=== PATIENT | male | born 1955 | race Caucasian/White ===

== ENCOUNTER 2017-12-14 17:07 | Observation (INO) | payer SELFPAY ==
[2017-12-14] MEDS ORDERED: NS 1,000 ML IV ONE (17:32)
--- NOTE | 2017-12-14 17:32 | EDPHY ---
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 HISTORY OF PRESENT ILLNESS: This is a 62-year-old male, presents emergency room with chest tightness. Patient states that he went for eye today, on a up pill inclined he got lightheaded and developed some chest tightness. States last an hour to 2 hr. It is sit down and rest. He thinks he may have also had a syncopal episode. No pleuritic pain. Patient denies any history of cardiovascular disease. Past Medical History: Denies significant medical history Past Surgical History: Denies significant surgical history Social History: Denies daily use drugs alcohol tobacco. Family History: Noncontributory ROS REVIEW OF SYSTEMS: 10 Systems were reviewed and negative with the exception of the elements mentioned in the history of present illness. Exam Constitutional triage nursing summary reviewed, vital signs reviewed, awake/ alert. Eyes normal conjunctivae and sclera, EOMI, PERRLA. HENT normal inspection, atraumatic, moist mucus membranes, no epistaxis, neck supple/ no meningismus, no raccoon eyes. Respiratory clear to auscultation bilaterally, normal breath sounds, no respiratory distress, no wheezing. Cardiovascular rate normal, regular rhythm, no murmur, no edema, distal pulses normal. Gastrointestinal soft, non-tender, no rebound, no guarding, normal bowel sounds, no distension, no pulsatile mass. Genitourinary no CVA tenderness. Musculoskeletal no midline vertebral tenderness, full range of motion, no calf swelling, no tenderness of extremities, no meningismus, good pulses, neurovascularly intact. Skin pink, warm, & dry, no rash, skin atraumatic. Neurologic awake, alert and oriented x 3, AAOx3, moves all 4 extremities equally, motor intact, sensory intact, CN II-XII intact, normal cerebellar, normal vision, normal speech. Psychiatric normal mood/affect. Heme/Lymph/Immune no lymphadenopathy. Differential diagnosis includes but is not limited to: ACS, atypical chest pain , pneumothorax, pneumonia, pulmonary embolism, aortic dissection, congestive heart failure, tumor, musculoskeletal pain, esophageal pain, GERD, peptic ulcer disease, pancreatitis Medical Decision Making: Plan for this patient IV establishment EKG, troponin, chest x-ray, blood work, rule out acute coronary syndrome. Full-dose aspirin. Upon arrival to the emergency room at 1800 the patient has no chest pain. Re-evaluation: EKG interpretation by me on record in [employer] system. Impression time of EKG 1723, sinus rhythm rate of 67, T-wave abnormality seen lead to [address] elevation. ED x-ray chest negative for acute cardiopulmonary disease. Troponin noted be negative. Plan for this patient will be admitted to the hospitalist service for chest pressure exertional. Further cardiac evaluation and rule out. I spoke with the hospitalist service Dr. Betancourt who agrees to admit. Source: Patient - Personal History Current Tetanus/Diphtheria Vaccine: No Current Tetanus Diphtheria and Acellular Pertussis (TDAP): No - Medical/Surgical History Hx Asthma: No Hx Chronic Respiratory Disease: No Hx Diabetes: No Hx Cardiac Disease: No Hx Renal Disease: No Hx Cirrhosis: No Hx Alcoholism: No Hx HIV/AIDS: No Hx Splenectomy or Spleen Trauma: No Other PMH: hepatitis, pna. depression. seeing neurologist - Social History Smoking Status: Never smoked Constitutional: Initial Vital Signs Temperature (C) 37.0 C 12/14/17 17:11 Heart Rate 78 12/14/17 17:11 Respiratory Rate 18 12/14/17 17:11 Blood Pressure 134/101 H 12/14/17 17:11 O2 Sat (%) 97 12/14/17 17:11 O2 Delivery Mode Room Air Allergies/Adverse Reactions: No Known Allergies Allergy (Verified 12/14/17 19:01) Home Medications: Medication Instructions Recorded Aspirin EC [Aspirin EC 81 mg (*)] 162 mg PO Q2D 12/14/17 Cyanocobalamin [Vitamin B12 (*)] 1,000 mcg PO Q2D 12/14/17 Herbals/Supplements -Info Only 1 ea PO DAILY 12/14/17 Melatonin [Melatonin 3 MG (*)] 3 mg PO HS PRN 12/14/17 Multivitamins [Multivitamin (*)] 1 each PO DAILY 12/14/17 Naproxen 375 mg PO Q6H 12/14/17 buPROPion XL [Wellbutrin 150mg XL] 300 mg PO DAILY 12/14/17 Medical Decision Making - Data Points Laboratory Results: Laboratory Results 12/14/17 17:25 12/14/17 17:25 Medications Given: Discontinued Medications Aspirin (Aspirin) 325 mg PO DAILY [facility] Stop: 06/13/18 08:59 Last Admin: 12/15/17 11:32 Dose: 325 mg Bupropion HCl (Wellbutrin Xl) 300 mg PO DAILY [facility] Stop: 06/13/18 08:59 Last Admin: 12/15/17 11:32 Dose: 300 mg Sodium Chloride (Ns) 1,000 mls @ 0 mls/hr IV EDNOW ONE; Wide Open PRN Reason: Protocol Stop: 12/14/17 17:33 Last Admin: 12/14/17 17:46 Dose: 1,000 mls Melatonin (Melatonin) 3 mg PO HS PRN PRN Reason: Sleep/Insomnia Stop: 06/12/18 19:41 Last Admin: 12/14/17 21:54 Dose: 3 mg Multivitamins (Tab-A-Josias) 1 each PO DAILY [facility] Stop: 06/13/18 08:59 Last Admin: 12/15/17 11:32 Dose: 1 each Temazepam (Restoril) 15 mg PO HS PRN PRN Reason: Sleep/Insomnia Stop: 06/12/18 19:38 Last Admin: 12/15/17 00:39 Dose: 15 mg Point of Care Test Results: Chemistry 12/14/17 17:30 POC Troponin I 0.00 ng/mL ng/mL (0.00-0.08) Departure - Departure Disposition: [facility] Acute Clinical Impression: Chest pain Qualifiers: Chest pain type: unspecified Qualified Code(s): R07.9 - Chest pain, unspecified Condition: Good
[2017-12-14 17:40] LABS: PLATELET COUNT 309 10^3/uL (150-400)
[2017-12-14 19:01] LABS: INR 0.95 (0.83-1.16); PROTIME(PATIENT) 12.9 SEC (12.0-15.0)
[2017-12-14] MEDS ORDERED: ONDANSETRON DISINTEGRATING 4 MG TAB PO PRN (19:39)
[2017-12-14] MEDS ORDERED: ACETAMINOPHEN 325 MG TAB PO PRN (19:39)
[2017-12-14] MEDS ORDERED: ONDANSETRON 4 MG/2 ML VIAL IVP PRN (19:39)
[2017-12-14] MEDS ORDERED: TEMAZEPAM 15 MG CAP PO PRN (19:39)
[2017-12-14] MEDS ORDERED: MELATONIN 3 MG TAB PO PRN (19:42)
--- NOTE | 2017-12-14 22:01 | PDGENHP ---
History and Physical - Chief Complaint syncope versus near syncope/chest pain - History of Present Illness 62 yo M with no significant PMH presenting with complaints of near syncope and chest pain today while hiking. Patient notes that in general he has been having difficulty with increased fatigue for around 20 years, but significantly worse recently. He also notes issues with chronic temporal headache for the past 10 months or so for which he has been seen by various dentists and orthodontists as well as his primary care doctor and which was thought to be either related to his teeth initially (ruled out more recently by an clinical services assistant) or to sinus issues--he has been on several courses of abx without help for this. 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 This happens most frequently at night and will last seconds to minutes and generally go away on its own. Today he was doing a light hike when he developed lightheadedness and some chest tightness, the symptoms became so severe he had to sit down, but when he tried to sit down he could not even do that and had to lie down. He was able to get up to a car with friends help and his GF notes that when he was in the car he did appear to lose consciousness completely for several seconds--he does not recall this episode and is unsure if he had a syncopal event or not. Ultimately they decided to [place] from [place] where he resides and had an ambulance [place]. Since arriving to the ER he has felt much better, currently he denies any chest pain or pressure, denies palpitations or skipped beats. He does continue to have headache across his temporal region and notes that he also has tinnitus which has been present months as well. History Information - Allergies/Home Medication List Allergies/Adverse Reactions: No Known Allergies Allergy (Verified 12/14/17 19:01) Home Medications: Aspirin EC [Aspirin EC 81 mg (*)] 162 mg PO Q2D 12/14/17 [Last Taken 12/13/17] Cyanocobalamin [Vitamin B12 (*)] 1,000 mcg PO Q2D 12/14/17 [Last Taken 12/13/17] Herbals/Supplements -Info Only 1 ea PO DAILY 12/14/17 [Last Taken Unknown] Melatonin [Melatonin 3 MG (*)] 3 mg PO HS PRN 12/14/17 [Last Taken 12/13/17] Multivitamins [Multivitamin (*)] 1 each PO DAILY 12/14/17 [Last Taken Unknown] Naproxen 375 mg PO Q6H 12/14/17 [Last Taken 12/14/17] buPROPion XL [Wellbutrin Xl] 300 mg PO DAILY 12/14/17 [Last Taken 12/14/17] I have personally reviewed and updated: family history, medical history, social history, surgical history - Past Medical History Additional medical history: chronic headache. tinnitus. 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 father diagnosed with "rosa 's syndrome" a blood disorder that is terminal. 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, has a father out of state who has been diagnosed with a terminal illness Review of Systems Review of Systems: ROS: 10pt was reviewed & negative except for what was stated in HPI & below Physical Exam Physical Exam: Temp Pulse Resp BP Pulse Ox 36.5 C 76 16 149/95 H 97 12/14/17 19:38 12/14/17 19:38 12/14/17 19:38 12/14/17 19:38 12/14/17 19:38 Constitutional: no apparent distress, appears nourished Eyes: PERRL, anicteric sclera Ears, Nose, Mouth, Throat: moist mucous membranes, hearing normal Cardiovascular: regular rate and rhythym, no murmur, rub, or gallop, No edema Respiratory: no respiratory distress, no rales or rhonchi, clear to auscultation Gastrointestinal: normoactive bowel sounds, soft, non-tender abdomen, no palpable masses Genitourinary: no bladder tenderness Skin: warm, normal color Musculoskeletal: full muscle strength, no muscle tenderness Neurologic: AAOx3, sensation intact bilaterally, CN II-XII Intact, No weakness, No numbness Psychiatric: interacting appropriately, not anxious, not encephalopathic Lab Data & Imaging Review 12/14/17 17:25 12/14/17 17:25 WBC 7.97 10^3/uL (3.80-9.50) 12/14/17 17:25 RBC 5.03 10^6/uL (4.40-6.38) 12/14/17 17:25 Hgb 16.4 g/dL (13.7-17.5) 12/14/17 17:25 Hct 45.2 % (40.0-51.0) 12/14/17 17:25 MCV 89.9 fL (81.5-99.8) 12/14/17 17:25 MCH 32.6 pg (27.9-34.1) 12/14/17 17:25 MCHC 36.3 g/dL (32.4-36.7) 12/14/17 17:25 RDW 11.9 % (11.5-15.2) 12/14/17 17:25 Plt Count 309 10^3/uL (150-400) 12/14/17 17:25 MPV 8.5 fL (8.7-11.7) L 12/14/17 17:25 Neut % (Auto) 65.0 % (39.3-74.2) 12/14/17 17:25 Lymph % (Auto) 21.7 % (15.0-45.0) 12/14/17 17:25 [place] % (Auto) 6.6 % (4.5-13.0) 12/14/17 17:25 Eos % (Auto) 6.0 % (0.6-7.6) 12/14/17 17:25 Baso % (Auto) 0.4 % (0.3-1.7) 12/14/17 17:25 Nucleat RBC Rel Count 0.0 % (0.0-0.2) 12/14/17 17:25 Absolute Neuts (auto) 5.18 10^3/uL (1.70-6.50) 12/14/17 17:25 Absolute Lymphs (auto) 1.73 10^3/uL (1.00-3.00) 12/14/17 17:25 Absolute Monos (auto) 0.53 10^3/uL (0.30-0.80) 12/14/17 17:25 Absolute Eos (auto) 0.48 10^3/uL (0.03-0.40) H 12/14/17 17:25 Absolute Basos (auto) 0.03 10^3/uL (0.02-0.10) 12/14/17 17:25 Absolute Nucleated RBC 0.00 10^3/uL (0-0.01) 12/14/17 17:25 Immature Gran % 0.3 % (0.0-1.1) 12/14/17 17:25 Immature Gran # 0.02 10^3/uL (0.00-0.10) 12/14/17 17:25 Platelet Estimate TNP 12/14/17 17:25 PT 12.9 SEC (12.0-15.0) 12/14/17 17:25 INR 0.95 (0.83-1.16) 12/14/17 17:25 APTT 24.3 SEC (23.0-38.0) 12/14/17 17:25 Sodium 140 mEq/L (135-145) 12/14/17 17:25 Potassium 4.1 mEq/L (3.3-5.0) 12/14/17 17:25 Chloride 106 mEq/L (97-110) 12/14/17 17:25 Carbon Dioxide 25 mEq/l (22-31) 12/14/17 17:25 Anion Gap 9 mEq/L (6-14) 12/14/17 17:25 BUN 14 mg/dL (7-23) 12/14/17 17:25 Creatinine 0.8 mg/dL (0.7-1.3) 12/14/17 17:25 Estimated GFR > 60 12/14/17 17:25 Glucose 97 mg/dL (70-100) 12/14/17 17:25 Calcium 9.5 mg/dL (8.5-10.4) 12/14/17 17:25 Magnesium 1.9 mg/dL (1.6-2.3) 12/14/17 17:25 Total Bilirubin 0.4 mg/dL (0.1-1.4) 12/14/17 17:25 Conjugated Bilirubin 0.2 mg/dL (0.0-0.5) 12/14/17 17:25 Unconjugated Bilirubin 0.2 mg/dL (0.0-1.1) 12/14/17 17:25 AST 24 IU/L (17-59) 12/14/17 17:25 ALT 31 IU/L (21-72) 12/14/17 17:25 Alkaline Phosphatase 53 IU/L (38-126) 12/14/17 17:25 POC Troponin I 0.00 ng/mL (0.00-0.08) 12/14/17 17:30 NT-Pro-B Natriuret Pep 93 pg/mL (0-125) 12/14/17 17:25 Total Protein 6.9 g/dL (6.3-8.2) 12/14/17 17:25 Albumin 4.0 g/dL (3.5-5.0) 12/14/17 17:25 Lipase 71 IU/L (23-300) 12/14/17 17:25 Visualized and Interpreted Chest x-ray results: Yes Chest X-Ray results: no infiltrate Visualized and Interpreted EKG results: Yes EKG Interpretation: Positive for: normal sinsus rhythm Assessment & Plan Assessment: Chest pain (Acute) 62 yo M with no significant PMH presenting with several chronic complaints and an episode of near syncope and chest pain associated with exertion # chest pain/near syncope: again this occurred in the setting of exertion and definitely has some concerning features to the story, initial w/u including ecg/ trop/cxr reassuring. He is not hypoxic making PE unlikely, will add on d-dimer to hopefully rule that out however. Will monitor on tele overnight, will trend troponin and so long as those remain negative will get nuc stress in am. If this is negative he would likely be a good candidate for Holter monitor, though he has some concerns about not having insurance until February so perhaps it would be reasonable to wait until then if all else looks reassuring. # chronic headache: somewhat unusual story, neurologically intact on exam, will add ESR/CRP for consideration of temporal arteritis particularly given hx of fatigue as next. Do not see strong indication for imaging or neuro consultation at this time. # fatigue: patient noting fatigue x 20 years and worsening recently, again as above currently neuro exam very benign, will add TSH and am cortisol level in addition to inflammatory markers as above # hx of TBI: with ongoing memory issues per patient, did note intermittent repeating things he had just said which he notes is consistent with the residual from that injury # observation status Patient new to my care. Old records reviewed and summarized as above. Care plan reviewed with ER doctor including plans for stress test in am
[2017-12-15 07:28] LABS: PLATELET COUNT 270 10^3/uL (150-400)
[2017-12-15] MEDS ORDERED: buPROPion XL 150 MG TAB PO SCH (09:00)
[2017-12-15] MEDS ORDERED: MULTIVITAMINS 1 EACH TAB PO SCH (09:00)
[2017-12-15] MEDS ORDERED: ASPIRIN 325 MG TAB PO SCH (09:00)
[2017-12-15] MEDS ORDERED: REGADENOSON 0.4 MG/5 ML SYR IVP ONE (10:14)
[2017-12-15 11:21] VITALS: BP 141/97
--- NOTE | 2017-12-15 13:25 | CPR ---
PROCEDURE: Exercise treadmill of exercise treadmill MPI study. SUPERVISING BATCH RECORDS CLERK: Ana Nogueira MD INDICATION FOR PROCEDURE: Syncopal event with mild chest pressure. PRE: After obtaining informed consent, ensuring patient's n.p.o. status of caffeine for greater than 12 hours, patient was placed on electrocardiogram. Initial EKG shows sinus rhythm, normal axis, non specific T-wave abnormalities in inferior leads. The patient denies of any chest pain or pressure, d oes report lightheadedness continuously despite positional changes. Reports no shortness of breath. STRESS: Patient was placed on exercise treadmill, following standard [place] protocol with following f indings: 1. The patient exercised for 6 minutes. 2. 7.2 METS. 3. Patient obtained a heart rate of 148 beats per minute, which was 93% of maximum predicted heart r ate. 4. Patient reporting no chest pain or shortness of breath with exercise, continued to have lighthead ed symptoms throughout testing. 5. No significant ST changes suggesting ischemia at peak exercise. 6. BP response: Rest 122/80, peak 160/90. 7. Patient was noted to have a single PVC in recovery phase, no malignant arrhythmias during stress or rest or pre-stages. 8. SpO2 remained greater than 90% throughout testing. 9. Testing was stopped due to maximum effort. 10. Otero treadmill score of 6, placing him at low cardiovascular risk. RECOVERY: Patient recovered for 5 minutes with heart rate and BP returning back to baseline. As men tioned, a single PVC. Patient's symptoms of lightheadedness did not change. No other malignant arrh ythmias or pauses noted. Currently, his vital signs are stable, and he was taken to Nuclear Medicine for post-stress imaging. IMPRESSION: 62-year-old male, admitted for syncopal events yesterday, undergoing exercise treadmill MPI study for evaluation for possible ischemia and arrhythmia: 1. No malignant arrhythmias noted during stress testing, no significant ST changes suggesting of isc hemia. 2. Patient reporting ongoing lightheadedness before, during, and post-testing, but no syncopal event s. 3. Otero treadmill score of 6, placing him at low cardiovascular risk. 4. MPI imaging is currently pending. 5. Results discussed with hospitalist services. /[id number]/MODL
--- NOTE | 2017-12-15 14:33 | ASMTCMCOM ---
CM Note CM Note Notes: Pt has been admitted with chest pain and near syncope. He lives in [place]. Pt is a self pay and had Medicaid in the past. MedData checked and he is over income for Medicaid at this time and will be referred to Financial Assistance for this hospital stay. Cardiology following. CM will follow for any d/c needs. Date Signed: 12/15/2017 02:32 PM Electronically Signed By:BRENNON Ayala
--- NOTE | 2017-12-15 15:18 | ASDISCHSUM ---
Discharge Information Plan Status:Home with No Needs Medically Cleared to Leave:12/15/2017 Discharge Date:12/15/2017 03:15 PM CM D/C Disposition:Home, Routine, Self-Care ADT D/C Disposition:Home, Routine, Self-Care Projected Discharge Date:12/15/2017 03:15 PM Transportation at D/C:Friend Discharge Delay Reason: Follow-Up Date:12/15/2017 03:15 PM Discharge Slot: Final Diagnosis: Placement Information Patient Contact Information Contact Name:ERI Relationship:Life Partner Address: Work Phone: City: [facility] Phone: State/[place] Code: Email: Financial Information Financial Class:Self-Pay Primary Plan Desc:SELF PAY Primary Plan Number: Secondary Plan Desc: Secondary Plan Number: Assessment Information LACE LACE Length of stay for Answers: Less than 1 day current admission Acuity / Level of Answers: No Care: Did the patient have an inpatient admission? Comorbidities - select Answers: Other Notes: Hx of TBI all that apply # of Emergency department Answers: 1-2 visits in the last 6 months Social determinants Answers: Mental health diagnosis (anxiety, depression, pers onality disorders, etc.) Score: 5 Date Signed: 12/15/2017 03:17 PM Electronically Signed By:BRENNON Ayala [facility] CM Progress Note CM Note CM Note Notes: Pt has been admitted with chest pain and near syncope. He lives in [place]. Pt is a self pay and had Medicaid in the past. MedData checked and he is over income for Medicaid at this time and will be referred to Financial Assistance for this hospital stay. Cardiology following. CM will follow for any d/c needs. Date Signed: 12/15/2017 02:32 PM Electronically Signed By:BRENNON Ayala Case Management Discharge Plan Note Case Management Discharge Discharge Order Complete? Answers: Yes Patient to Obtain Answers: Independently Medications Transportation Arranged Answers: Family/Friends Discharge Comments Notes: Pt has been medically cleared for d/c and will discharging with no CM needs. Date Signed: 12/15/2017 03:16 PM Electronically Signed By:BRENNON Ayala Intervention Information
--- NOTE | 2017-12-15 16:14 | PDDCSUM ---
Discharge Summary Discharge Summary: Date of Admission: 12/14/2017 Date of Discharge: 12/15/2017 Procedures/Studies: exercise stress with MPI Discharge Diagnoses: 1. Presyncope 2. Chest discomfort 3. Fatigue, chronic 4. Headache, chronic 5. H/o TBI Brief Hospital Course: 62 yo M with no significant PMH presenting with several chronic complaints and an episode of near syncope and chest pain associated with exertion. Serial trop/ ecg negative. Exercise stress with MPI negative for ischemia; ecg portion negative for arrhythmia with exertion and his telemetry was quiet except for a rare PVC. Additional testing including d-dimer, TSH, AM cortisol level were all unremarkable. I am suspicious that his episode of chest discomfort may have been driven by anxiety vs a vasovagal episode that lead to his lightheadedness. He was not orthostatic and ambulating without difficulty. In terms of his fatigue, I recommended that he get a PCP so he can get tested for sleep apnea and consider a cardiac event monitor (although low suspicion of arrhythmia). Medications: Please refer to EMR for complete list. There were no medication changes during this admission. Follow Up Plan: 1. Needs to get insurance and establish with PCP 2. Recommend sleep apnea testing, possible cardiac event monitor 3. He plans to follow up with a neurologist for his headaches once he gets insurance Physical Exam: Vitals and telemetry reviewed, sinus rhythm and normotensive. RRR without m/r/g, lungs clear, abdomen soft, no rashes or edema.
--- NOTE | 2017-12-18 07:10 | CPEKG ---
Test Reason : OPEN Blood Pressure : / mmHG Vent. Rate : 067 BPM Atrial Rate : 067 BPM P-R Int : 158 ms QRS Dur : 100 ms QT Int : 423 ms P-R-T Axes : 058 023 028 degrees QTc Int : 447 ms Sinus rhythm Borderline T wave abnormalities Confirmed by Greg Bermudez ([id number]) on 12/18/2017 7:09:24 AM Referred By: Confirmed By:Greg Bermudez
== END 2017-12-15 15:15 | disposition home or self-care (01) ==
LOC: F2W 20:12
PROVIDERS: ADMIT Internal Medicine; ATTEND Internal Medicine
DX: R55 Syncope and collapse (principal); R07.89 Other chest pain; R53.82 Chronic fatigue, unspecified; R51 Headache; Z87.820 Personal history of traumatic brain injury; E86.0 Dehydration
CPT/HCPCS: 84484-PO; A9500; G0378; J2785